=== PATIENT | female | born 2000 | race Caucasian/White ===

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

== ENCOUNTER 2021-07-31 11:37 | Emergency (ER) | payer OTHER ==
[~2021-07-31] VITALS: Ht 160 cm; Wt 80.3 kg
[2021-07-31 11:41] VITALS: BP 103/63
--- NOTE | 2021-07-31 11:57 | NUR ---
PT STATES SHE HAS A LUMP UNDER CHIN THAT IS GROWING IN SIZE SINCE LAST WEEK. LUMP IS HARD/TENDER TO TOUCH. NO ORAL CAVITY CHANGES. SKIN INTACT, DENIES ANY RECENT ACCIDENTS OR INJURIES NO PMH NKDA
--- NOTE | 2021-07-31 14:02 | NUR ---
PATIENT TO RESTROOM FOR VOID.
--- NOTE | 2021-07-31 14:08 | NUR ---
CONSENT FORM SIGNED FOR CT
--- NOTE | 2021-07-31 14:14 | NUR ---
CIARAN HANDED TO CPT BETY AT ER BEDSIDE.
--- NOTE | 2021-07-31 14:14 | NUR ---
PT TRANSPORTED TO CT BY WHEELCHAIR.
--- NOTE | 2021-07-31 14:14 | NUR ---
BLOOD SAMPLE COLLECTED AND HANDED TO CPT BETY AT ER BEDSIDE
[2021-07-31] MEDS: NACL 0.9% 1,000 ML IV ONE (14:15)
[2021-07-31 14:24] LABS: BASOPHILS % (AUTO) 0.6 % (0.0-2.0); EOSINOPHILS # (AUTO) 0.1 K/uL (0-0.4); EOSINOPHILS % (AUTO) 1.3 % (0.0-4.0); HEMATOCRIT 39.5 % (36-48); HEMOGLOBIN 12.9 g/dL (12.0-16.0); LYMPHOCYTES # (AUTO) 2.5 K/uL (2.5-16.5); MEAN CORPUSCULAR HEMOGLOBIN 27 pg (27-31); MEAN CORPUSCULAR HGB CONC 33 g/dL (33-37); MEAN CORPUSCULAR VOLUME 82.2 fL (80-94); MONOCYTES # (AUTO) 0.6 K/uL (0.8-1.0); MONOCYTES % (AUTO) 8.1 % (1.7-9.3); NEUTROPHILS # (AUTO) 4.5 K/uL (1.8-7.7); PLATELET COUNT (AUTO) 245 K/uL (140-450); RED CELL DISTRIBUTION WIDTH 15.2 % (11.6-13.7); WHITE BLOOD COUNT (AUTO) 7.7 K/uL (4.5-11.0)
--- NOTE | 2021-07-31 14:26 | NUR ---
PT RETURNED FROM CT BY WHEELCHAIR AND IVF CONTINUED. VSS; RESPIRATIONS EVEN/UNLABORED. BED LOCKED IN LOWEST POSITION, SIDE RAILS X 1, CALL LIGHT IN REACH.
[2021-07-31 14:36] LABS: ANION GAP 13.3 (8-16); CARBON DIOXIDE 27.4 mmol/L (21-32); CREATININE 0.7 mg/dL (0.6-1.3); POTASSIUM 3.7 mmol/L (3.5-5.1)
[2021-07-31] MEDS ORDERED: IBUP-2213 PO (15:35)
[2021-07-31 16:05] VITALS: BP 112/67
== END 2021-07-31 16:03 | disposition home or self-care (01) ==
LOC: MED 11:37
DX: R59.1 Generalized enlarged lymph nodes (principal)
CPT/HCPCS: 36415; 70487; 80048; 81025; 85025; 96360; 99285; J7030; Q9967